=== PATIENT | male | born 1960 | race African-American/Black ===

== ENCOUNTER 2019-08-11 11:10 | Inpatient (IN) | payer MEDICAID ==
[~2019-08-11] VITALS: Ht 190.5 cm; Wt 80.3 kg
[2019-08-11] MEDS ORDERED: ibuprofen (11:36)
[2019-08-11 14:08] LABS: HEMATOCRIT. 44.6 % (42.0-52.0); HEMOGLOBIN. 15.4 g/dL (14.0-18.0); MEAN CORPUSCULAR VOLUME 104.5 fL (80.0-94.0); MEAN PLATELET VOLUME 9.7 fl (7.4-10.4); PLATELET 97 x1000/uL (130-400); RED BLOOD CELL COUNT 4.26 mill/uL (4.7-6.1); RED CELL DISTRIBUTION WIDTH 12.8 % (11.6-14.6)
[2019-08-11 14:17] LABS: CHLORIDE 104 mEq/L (98-107)
[2019-08-11 14:33] LABS: PLATELET ESTIMATE SLIGHTLY DECREASED
[2019-08-11] MEDS ORDERED: SODIUM CHLORIDE 0.9% 1000ML BAG (SEPSIS BOLUS) IV ONE (16:30)
[2019-08-11] MEDS ORDERED: LEVOFLOXACIN 500MG PREMIX 100 ML IV ONE (17:45)
[2019-08-11] MEDS ORDERED: AZITHROMYCIN 500 MG in DEXT 5% WATER 250 ML IV SCH ×2 (17:45→23:15)
[2019-08-11 21:06] LABS: CLARITY URINE CLEAR (CLEAR); COLOR URINE YELLOW (YELLOW); KETONES URINE NEGATIVE (NEGATIVE); LEUKOCYTE ESTERASE URINE NEGATIVE (NEGATIVE); NITRITE URINE NEGATIVE (NEGATIVE); OCCULT BLOOD URINE NEGATIVE (NEGATIVE); PROTEIN URINE NEGATIVE (NEGATIVE); SPECIFIC GRAVITY URINE 1.003 (1.005-1.030); UROBILINOGEN URINE 0.2 E.U./dL (0.2-1.0)
[2019-08-11 21:20] VITALS: BP 152/93
[2019-08-11 21:21] LABS: *AMPHETAMINES SCREEN URINE NEGATIVE (NEGATIVE); *BARBITURATES SCREEN URINE NEGATIVE (NEGATIVE); *BENZODIAZEPINES SCREEN URINE PRESUMTIVE POSITIVE (NEGATIVE); METHADONE URINE SCREEN NEGATIVE (NEGATIVE)
[2019-08-11 21:22] LABS: *COCAINE SCREEN URINE NEGATIVE (NEGATIVE); CANNABINOID URINE SCREEN NEGATIVE (NEGATIVE); OPIATES URINE SCREEN PRESUMTIVE POSITIVE (NEGATIVE); PHENCYCLIDINE URINE SCREEN NEGATIVE (NEGATIVE)
[2019-08-11] MEDS ORDERED: LORAZEPAM 2MG/ML CPJ IV PRN (23:15)
[2019-08-11] MEDS ORDERED: HYDROCODONE/ACETAMINOPHEN 5/325MG TABLET PO PRN (23:15)
[2019-08-11] MEDS ORDERED: PROMETHAZINE/DEXTROMETHORPHAN 6.25-15MG/5ML BOTTLE 120ML PO PRN (23:15)
[2019-08-11] MEDS ORDERED: CLONIDINE 0.1MG TABLET PO PRN (23:15)
[2019-08-11] MEDS ORDERED: IPRATROPIUM/ALBUTEROL 0.5-3(2.5)MG/3ML NEB NEB PRN (23:15)
[2019-08-11] MEDS ORDERED: ONDANSETRON HCL 4MG/2ML INJ IV PRN (23:15)
[2019-08-11] MEDS ORDERED: CEFTRIAXONE 1 G PREMIX 50 ML IV SCH (23:15)
[2019-08-11] MEDS ORDERED: ENOXAPARIN 40MG/0.4ML SYR SUBCUT SCH (23:15)
[2019-08-11] MEDS ORDERED: MORPHINE SULFATE 2 MG/ML CPJ (NOT FOR IM USE) IV PRN (23:15)
[2019-08-12] VITALS: BP 143/97
[2019-08-12 04:00] VITALS: BP 115/103
[2019-08-12 04:50] LABS: CHLORIDE 107 mEq/L (98-107)
[2019-08-12 04:56] LABS: PHOSPHORUS 2.4 mg/dL (2.5-4.9)
[2019-08-12 04:59] LABS: CREATINE KINASE 156 IU/L (39-308)
[2019-08-12 05:02] LABS: CREATINE KINASE MB FRACTION < 1.0 ng/mL (0.5-3.6)
[2019-08-12 06:25] LABS: BASOPHILS % 0.4 % (0.0-2.0); EOSINOPHILS % 0.3 % (0.0-5.0); HEMATOCRIT. 40.6 % (42.0-52.0); HEMOGLOBIN. 13.8 g/dL (14.0-18.0); LYMPHOCYTES % 21.9 % (20.0-50.0); MEAN CORPUSCULAR HEMOGLOBIN 35.7 pg (28.0-32.0); MEAN CORPUSCULAR VOLUME 105.1 fL (80.0-94.0); MEAN PLATELET VOLUME 9.6 fl (7.4-10.4); MONOCYTES % 14.8 % (2.0-8.0); NEUTROPHILS % 62.6 % (40.0-76.0); PLATELET 99 x1000/uL (130-400); RED BLOOD CELL COUNT 3.87 mill/uL (4.7-6.1); RED CELL DISTRIBUTION WIDTH 12.6 % (11.6-14.6)
[2019-08-12] MEDS ORDERED: CEFTRIAXONE 1 G PREMIX 50 ML IV SCH (08:00)
[2019-08-12] MEDS ORDERED: FUROSEMIDE 40MG/4ML VIAL IVP ONE (08:30)
[2019-08-12] MEDS ORDERED: FOLIC ACID 1MG TABLET PO SCH (09:00)
[2019-08-12] MEDS ORDERED: MAGNESIUM 2 G PREMIX 50 ML IV ONE (09:00)
[2019-08-12] MEDS ORDERED: AZITHROMYCIN 500 MG in DEXT 5% WATER 250 ML IV SCH (21:00)
== END 2019-08-12 08:40 | disposition left against medical advice (07) | DRG 139 ==
LOC: ER 11:10 → EDBEDREQ 17:03 → 6WST 17:39 → EDBEDREQ 17:47 → ENRESERV 20:32
PROVIDERS: ADMIT Internal Medicine Nephrology; ATTEND Internal Medicine Nephrology
DX: J18.9 Pneumonia, unspecified organism (principal); I51.7 Cardiomegaly
CPT/HCPCS: 36415; 71045; 80048; 80053; 80061; 80305; 81003; 82010; 82550; 82553; 83605; 83735; 83880; 84100; 84145; 84443; 84484; 85025; 87804; 93005; 94640; 99291; J0456; J0696; J1956; J2060; J3475; J7030; J7060

== ENCOUNTER 2019-08-13 09:05 | Emergency (ER) | payer MEDICAID ==
[~2019-08-13] VITALS: Ht 195.6 cm; Wt 80.3 kg
[~2019-08-13 09:05] MED LIST: ibuprofen
[2019-08-13] MEDS ORDERED: LEVOFLOXACIN 750MG PREMIX 150 ML IV NR (10:15)
[2019-08-13] MEDS ORDERED: SODIUM CHLORIDE 0.9% 1000ML BAG (SEPSIS BOLUS) IV ONE (10:30)
[2019-08-13 13:27] VITALS: BP 150/85
== END 2019-08-13 13:32 | disposition home or self-care (01) ==
LOC: ER 09:05
DX: A41.9 Sepsis, unspecified organism (principal); J18.9 Pneumonia, unspecified organism; I50.9 Heart failure, unspecified; I42.9 Cardiomyopathy, unspecified; Z20.828 Contact with and (suspected) exposure to other viral communicable diseases
CPT/HCPCS: 71045; 87635; 93005; 96374; 99285; J1956